=== PATIENT | female | born 1965 | race Caucasian/White ===

== ENCOUNTER → 2017-07-21 | Day surgery (SDC) | payer OTHER ==
[~2017-07-21] MED LIST: ACETAMINOPHEN 1000 MG/100 ML 100 ML IV ONE; ACETAMINOPHEN/HYDROcodone 325 MG/5 MG TAB ONE; BACITRACIN IM FOR SOLN 50,000 UNIT VIAL ONE; BUPIVACAINE/EPINEPHRINE 0.25% 50 ML VIAL ONE; GENTAMICIN SULFATE 80 MG/2 ML VIAL ONE; LACTATED RINGER'S 1000 ML INJ 1,000 ML ONE; LIDOCAINE 1%/EPINEPHrine 1:100,000 SOLN 30 ML VIAL ONE; MEPERIDINE HCL 25 MG/ML VIAL ONE; MIDAZOLAM HCL 2 MG/2 ML VIAL ONE; ONDANSETRON HCL 4 MG/2 ML VIAL IV PUSH ONE; PROPOFOL 200 MG/20 ML AMP IV ONE; SODIUM CHLORIDE 0.9% 100 ML BAG IV ONE; SODIUM CHLORIDE 0.9% 20 ML VIAL ONE; VANCOMYCIN 500 MG VIAL ONE; ceFAZolin INJ 1,000 MG VIAL ONE
--- NOTE | 2017-07-25 09:06 | TN ---
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 PROCEDURES: 1. Bilateral breast revision reconstruction. 2. Release of contracted scar located at the base of the right breast for a primary defect of 3 x 5, secondary defect is 6 x 10 cm. This required tissue rearrangement. SURGEON: Luis A Villar MD, [facility] ANESTHESIA: LMA, general. ESTIMATED BLOOD LOSS: Minimal. PROCEDURE: She was properly consented, marked and anesthetized. The skin sterilized with Betadine solution, sterile draping applied. The scar at the base of the right breast, that has created some significant stricture not only due to the radiation, but also due to the previous Enrico flap, was properly released changing in the vectors resulting in a defect of approximately 5 x 10 cm. Z-plasty was rotated and a tissue rearrangement performed, inset utilizing 2-0 Monocryl suture and 2-0 Prolene to the skin. Attention was directed to both breasts were indeed the patient has significant asymmetry in both breasts, as well as the port that was located in the right supraclavicular area. Fat was harvested from the abdomen and flanks. Approximately 1000 mL of tumescent was infiltrated and approximately 700-800 mL of fat was removed. This was properly decanted and then reinjected into the defect to bring balance and symmetry the best we could. We then injected approximately 300 on the right breast, 400 mL on the left breast including about 20-30 mL on the port site as well. Each and every one of the puncture wounds were closed utilizing an 11 blade was closed utilizing chromic suture and Steri-Strips applied. Absorbent compression dressings applied. Good viability of tissue was noted at the end of the case. The patient tolerated the procedure well. Luis A Villar MD [facility] , 08:47 AM , 09:05 AM
== END | disposition home or self-care (01) ==
LOC: ESDC 08:25
PROVIDERS: ATTEND Plastic Surgery
DX: N64.89 Other specified disorders of breast (principal); Z85.3 Personal history of malignant neoplasm of breast; Z90.13 Acquired absence of bilateral breasts and nipples
CPT/HCPCS: 00402; 14301; 14302; 19380; J0131; J2175; J2250; J2405; J3010; J3370; J7120; J0690; J1580